=== PATIENT | female | born 1975 | race Two or more races ===

== ENCOUNTER 2017-09-13 18:35 | Emergency (ER) | payer MEDICAID, OTHER ==
[~2017-09-13] VITALS: Ht 167.6 cm; Wt 99.8 kg
[2017-09-13 19:40] VITALS: BP 119/70
[2017-09-13] MEDS ORDERED: KETOROLAC TROMETH 60MG/2ML VIAL IM ONE (20:15)
== END 2017-09-13 20:48 | disposition home or self-care (01) ==
LOC: ER 18:35
DX: S00.432A Contusion of left ear, initial encounter (principal); Z88.6 Allergy status to analgesic agent; W45.8XXA Other foreign body or object entering through skin, initial encounter; Y93.89 Activity, other specified; Y92.89 Other specified places as the place of occurrence of the external cause; Y99.8 Other external cause status
CPT/HCPCS: 96372; 99283; J1885